=== PATIENT | female | born 1995 | race Two or more races ===

== ENCOUNTER 2018-04-18 09:01 | Emergency (ER) | payer OTHER ==
[~2018-04-18] VITALS: Ht 165.1 cm; Wt 106.8 kg
[2018-04-18] MEDS ORDERED: IBUPROFEN 800 MG TABLET PO ONE (12:30)
[2018-04-18 13:33] VITALS: BP 149/52
== END 2018-04-18 14:32 | disposition home or self-care (01) ==
LOC: EMS 09:04
DX: M54.5 Low back pain (principal); W05.1XXA Fall from non-moving nonmotorized scooter, initial encounter; Y93.89 Activity, other specified; Y92.89 Other specified places as the place of occurrence of the external cause; Y99.8 Other external cause status
CPT/HCPCS: 72100